=== PATIENT | female | born 1960 | race Caucasian/White ===

== ENCOUNTER 2018-05-02 06:50 | Day surgery (SDC) | payer OTHER ==
[~2018-05-02] VITALS: Ht 167.6 cm; Wt 107.5 kg
[2018-05-02] MEDS ORDERED: MIDAZOLAM 2 MG/2 ML VIAL ONE (09:20)
[2018-05-02] MEDS ORDERED: fentaNYL 0.05 MG/ML VIAL ONE (09:20)
== END 2018-05-02 10:40 | disposition home or self-care (01) ==
LOC: MDS 06:50 → MMU 07:00 → MDS 10:40
PROVIDERS: ATTEND Internal Medicine Gastroenterology
DX: K21.9 Gastro-esophageal reflux disease without esophagitis (principal); I10 Essential (primary) hypertension; E11.9 Type 2 diabetes mellitus without complications; F41.9 Anxiety disorder, unspecified; F32.9 Major depressive disorder, single episode, unspecified; Z79.1 Long term (current) use of non-steroidal anti-inflammatories (NSAID); E66.9 Obesity, unspecified; Z68.38 Body mass index [BMI] 38.0-38.9, adult; Z79.899 Other long term (current) drug therapy; Z98.890 Other specified postprocedural states; Z98.51 Tubal ligation status
CPT/HCPCS: 43235; 82948; J2250; J7030; J3010